=== PATIENT | male | born 1950 | race Caucasian/White ===

== ENCOUNTER 2022-05-28 15:29 | Observation (INO) | payer MEDICARE, OTHER ==
[~2022-05-28] VITALS: Ht 180.3 cm; Wt 95.3 kg
[2022-05-28] MEDS ORDERED: SODIUM CHLORIDE FLUSH 10 ML SYR IV PRN (16:00)
[2022-05-28 16:28] LABS: BASOPHILS % 0.5 % (0.0-1.0); EOSINOPHILS # (AUTO) 0.2 (0.0-0.4); EOSINOPHILS % 2.7 % (0.0-6.0); HEMATOCRIT 43.1 % (38.2-49.6); HEMOGLOBIN 14.7 g/dL (14.0-18.0); LYMPHOCYTES # (AUTO) 1.8 (1.0-3.2); LYMPHOCYTES % 32.6 % (18.0-39.1); MEAN CORPUSCULAR HGB CONC 34.1 g/dL (31-35); MEAN CORPUSCULAR VOLUME 90.9 fL (81-99); MONOCYTES # (AUTO) 0.7 (0.2-0.8); MONOCYTES % 11.5 % (4.4-11.3); NEUTROPHILS % 52.3 % (38.7-80.0); PLATELET COUNT 224 x10e3/uL (140-360); RED BLOOD COUNT 4.74 x10e6/uL (4.3-5.7); RED CELL DISTRIBUTION WIDTH 12.3 % (11.7-14.4)
[2022-05-28 16:41] LABS: ALBUMIN 3.9 g/dL (3.5-5.0); ALBUMIN/GLOBULIN RATIO 1.1 (0.8-2.0); ANION GAP 13.9 mmol/L (8-16); CALCIUM 9.1 mg/dL (8.4-10.2); CREATININE, SERUM 0.89 mg/dL (0.72-1.25); POTASSIUM 3.9 mmol/L (3.5-5.1)
[2022-05-28 16:58] LABS: INR 0.87; PROTHROMBIN TIME 12.6 seconds (11.9-14.5)
[2022-05-28 16:59] LABS: PARTIAL THROMBOPLASTIN TIME 28.1 seconds (23.8-35.5)
[2022-05-28] MEDS ORDERED: ONDANSETRON HCL INJ 2MG/ML 2ML 2 MG/ML VIAL IV PRN (17:15)
[2022-05-28] MEDS ORDERED: ASPIRIN 81 MG CHEW TAB PO ONE (17:15)
[2022-05-28 18:13] LABS: CLARITY,URINE CLEAR (CLEAR); COLOR,URINE YELLOW (YELLOW); KETONES,URINE NEGATIVE (NEGATIVE); LEUKOCYTE ESTERASE ,URINE NEGATIVE (NEGATIVE); NITRITE,URINE NEGATIVE (NEGATIVE); PROTEIN,URINE DIPSTICK NEGATIVE (NEGATIVE); URINE UROBILINOGEN 0.2 mg/dL (0.2 - 1)
[2022-05-28 18:22] LABS: BACTERIA,URINE RARE /HPF; WBC,URINE (MAN) 0-5 /HPF (0-5)
[2022-05-28 19:59] VITALS: BP 148/75
[2022-05-28 20:10] VITALS: BP 148/75
[2022-05-28 20:22] VITALS: BP 148/75
[2022-05-28 21:00] VITALS: BP 148/75
[2022-05-28] MEDS ORDERED: MELATONIN3 MG PO (21:30)
[2022-05-28] MEDS ORDERED: PRILOSEC OTC20 MG PO (21:30)
[2022-05-28] MEDS ORDERED: AZELASTINE137 MCG/0. NS (21:30)
[2022-05-29] VITALS (7 sets, daily range): BP systolic 114–145; BP diastolic 66–84
[2022-05-29 05:26] LABS: BASOPHILS % 0.8 % (0.0-1.0); EOSINOPHILS # (AUTO) 0.2 (0.0-0.4); EOSINOPHILS % 3.7 % (0.0-6.0); HEMOGLOBIN 14.3 g/dL (14.0-18.0); LYMPHOCYTES # (AUTO) 1.6 (1.0-3.2); LYMPHOCYTES % 30.6 % (18.0-39.1); MEAN CORPUSCULAR HEMOGLOBIN 30.7 pg (28-32); MEAN CORPUSCULAR HGB CONC 34.9 g/dL (31-35); MONOCYTES # (AUTO) 0.7 (0.2-0.8); MONOCYTES % 12.8 % (4.4-11.3); NEUTROPHILS # (AUTO) 2.7 (2.1-6.9); NEUTROPHILS % 51.7 % (38.7-80.0); PLATELET COUNT 196 x10e3/uL (140-360); RED BLOOD COUNT 4.66 x10e6/uL (4.3-5.7); RED CELL DISTRIBUTION WIDTH 12.2 % (11.7-14.4)
[2022-05-29 05:58] LABS: ALBUMIN 3.6 g/dL (3.5-5.0); ALBUMIN/GLOBULIN RATIO 1.2 (0.8-2.0); ANION GAP 12.9 mmol/L (8-16); CALCIUM 8.9 mg/dL (8.4-10.2); CREATININE, SERUM 0.8 mg/dL (0.72-1.25); POTASSIUM 3.9 mmol/L (3.5-5.1)
[2022-05-29] MEDS: OMEPRAZOLE 20 MG CAP PO SCH ×2 (08:10→15:53)
[2022-05-29] MEDS ORDERED: PNEUMOCOCCAL VACCINE POLYVALENT 23 MCG/0.5 ML VIAL IM SCH (09:00)
[2022-05-29] MEDS ORDERED: BISACODYL 5 MG TAB EC PO ONE (13:30)
[2022-05-29] MEDS ORDERED: ATORVASTATIN CA10 MG PO (18:47)
[2022-05-29] MEDS ORDERED: ASPIRIN81 MG PO (18:47)
[2022-05-30] MEDS ORDERED: POLYETHYLENE GLYCOL 3350 17 GM PACK PO SCH (09:00)
== END 2022-05-29 19:38 | disposition home or self-care (01) ==
LOC: ER 15:54 → ERHOLD 17:14 → MED/SURG3 18:32
PROVIDERS: ADMIT Internal Medicine; ATTEND Internal Medicine
DX: G45.9 Transient cerebral ischemic attack, unspecified (principal); E78.5 Hyperlipidemia, unspecified; K21.9 Gastro-esophageal reflux disease without esophagitis; Z86.010 Personal history of colon polyps; Z90.49 Acquired absence of other specified parts of digestive tract; I50.30 Unspecified diastolic (congestive) heart failure; Z20.822 Contact with and (suspected) exposure to COVID-19
CPT/HCPCS: 0223U; 36415 ×2; 70450; 70551; 71045; 80053 ×2; 81001; 83880; 84484; 85025 ×2; 85610; 85730; 92526; 92610; 93005; 93306; 93880; 94760; 99284; G0378 ×2